=== PATIENT | male | born 1980 | race Caucasian/White ===

== ENCOUNTER 2020-08-18 10:23 | Inpatient (IN) | payer BC ==
[2020-08-18] MEDS ORDERED: Sodium Chloride 0.9% 1,000 ML IV ONE (10:47)
[2020-08-18] MEDS ORDERED: Albuterol 8 GM Inhaler INH ONE (10:58)
[2020-08-18 11:03] LABS: CHLORIDE,CL 100 mmol/L (98-107); SODIUM,NA 137 mmol/L (136-145)
[2020-08-18] MEDS ORDERED: Ondansetron 4 MG/2 ML SDV IVPUSH ONE (11:07)
[2020-08-18] MEDS ORDERED: REMDESIVIR 200 MG in Sodium Chloride 0.9% 250 ML IV ONE (11:10)
[2020-08-18] MEDS ORDERED: Dexamethasone 10 MG/ML SDV IVPUSH SCH (11:15)
[2020-08-18] MEDS ORDERED: Iopamidol 755 Mg/ML 100 ML Bottle IVPUSH ONE (11:37)
[2020-08-18] MEDS: Sodium Chloride 0.9% 10 ML Syringe FLUSH PRN ×2 (11:41→11:42)
--- NOTE | 2020-08-18 11:45 | EDM.PDOC ---
ED HPI GENERAL MEDICAL PROBLEM - General Chief Complaint: General Stated Complaint: shortness of breath Time Seen by Provider: 08/18/20 10:40 Source of Information: Reports: Patient History Limitations: Reports: No Limitations - History of Present Illness INITIAL COMMENTS - FREE TEXT/NARRATIVE: Patient ill will Covid since Friday, tested positive Friday. Now on day 6. Comes to ER after nearly passing out at home. Complains of SOB/aches/vomiting/diarrhea. Denies chronic medical conditions. generalized Pain Score (Numeric/FACES): 7 - Related Data Allergies Allergy/AdvReac Type Severity Reaction Status Date / Time No Known Allergies Allergy Verified 08/18/20 10:24 Home Meds: Home Meds Acetaminophen [Tylenol] 650 mg PO Q4H PRN 08/18/20 [History] Past Medical History HEENT History: Reports: Impaired Vision Musculoskeletal History: Reports: Fracture - Past Surgical History HEENT Surgical History: Reports: LASIK Social & Family History - Tobacco Use Tobacco Use Status *Q: Former Tobacco User Years of Tobacco use: 26 Packs/Tins Daily: 2 Used Tobacco, but Quit: Yes Month/Year Tobacco Last Used: 2018 - Caffeine Use Caffeine Use: Reports: Coffee - Alcohol Use Days Per Week of Alcohol Use: 4 Number of Drinks Per Day: 2 Total Drinks Per Week: 8 - Recreational Drug Use Recreational Drug Use: No ED ROS GENERAL - Review of Systems Review Of Systems: See Below Constitutional: Reports: Fever, Chills, Malaise, Weakness, Fatigue, Decreased Appetite Respiratory: Reports: Shortness of Breath, Cough. Denies: Hemoptysis Cardiovascular: Reports: Chest Pain, Dyspnea on Exertion, Lightheadedness. Denies: Palpitations GI/Abdominal: Reports: Diarrhea, Decreased Appetite, Nausea, Vomiting. Denies: Difficulty Swallowing, Distension, Hematemesis, Hematochezia : Reports: No Symptoms Musculoskeletal: Reports: Other (all over body aches) Skin: Reports: No Symptoms Neurological: Reports: Confusion, Headache, Difficulty Walking, Weakness. Denies: Trouble Speaking, Change in Speech Psychiatric: Reports: No Symptoms ED EXAM, GENERAL - Physical Exam Exam: See Below Exam Limited By: No Limitations General Appearance: Alert, Moderate Distress (coughing/mildly cyanotic during coughing spells) Eye Exam: Bilateral Eye: EOMI, PERRL Nose: No: Nasal Deformity, Nasal Swelling, Nasal Drainage Throat/Mouth: Normal Voice, No Airway Compromise Head: Atraumatic, Normocephalic Neck: Supple Respiratory/Chest: No Respiratory Distress, No Accessory Muscle Use, Decreased Breath Sounds (throughout). No: Crackles, Rales, Rhonchi Peripheral Pulses: 2+: Radial (L), Radial (R) GI/Abdominal: Soft, Non-Tender, No Distention, Abnormal Bowel Sounds (decreased) (Male) Exam: Deferred Rectal (Males) Exam: Deferred Back Exam: No: CVA Tenderness (L), CVA Tenderness (R), Muscle Spasm, Paraspinal Tenderness, Vertebral Tenderness Extremities: Slow Capillary Refill Neurological: Alert, Other (Moves all 4 limbs equally. Does not remember day/month when asked by nursing) Psychiatric: Anxious Skin Exam: Warm, Dry, Intact, Normal Color Course - Vital Signs Last Recorded V/S: Last Vital Signs Temp 37.8 C 08/18/20 10:26 Pulse 92 08/18/20 11:30 Resp 21 H 08/18/20 11:30 BP 90/74 08/18/20 11:30 Pulse Ox 99 08/18/20 11:30 - Orders/Labs/Meds Orders: Active Orders 24 hr Category Date Time Status Chest 1V Frontal [CR] Stat Exams 08/18/20 10:42 Taken PE Chest [Ang Chest] [CT] Stat Exams 08/18/20 11:31 Ordered CULTURE BLOOD [BC] Stat Lab 08/18/20 10:35 Received CULTURE BLOOD [BC] Stat Lab 08/18/20 10:40 Received UA W/MICROSCOPIC [URIN] Stat Lab 08/18/20 10:41 Ordered Enoxaparin [Lovenox] Med 08/18/20 12:15 Ordered 40 mg SUBCUT Q12H Sodium Chloride 0.9% [Saline Flush] Med 08/18/20 10:41 Active 10 ml FLUSH ASDIRECTED PRN dexAMETHasone [Decadron] Med 08/18/20 11:15 Active 6 mg IVPUSH DAILY Blood Culture x2 Reflex Set [OM.PC] Stat Oth 08/18/20 10:42 Ordered Saline Lock Insert [OM.PC] Stat Oth 08/18/20 10:41 Ordered Medication Orders Dexamethasone (Decadron) 6 mg IVPUSH DAILY JENNIFER Last Admin: 08/18/20 11:24 Dose: 6 mg Documented by: CANDY Enoxaparin Sodium (Lovenox) 40 mg SUBCUT Q12H JENNIFER Last Admin: 08/18/20 13:39 Dose: 40 mg Documented by: CANDY Sodium Chloride (Saline Flush) 10 ml FLUSH ASDIRECTED PRN PRN Reason: Keep Vein Open Last Admin: 08/18/20 11:42 Dose: 10 ml Documented by: Admin: 08/18/20 11:41 Dose: 10 ml Documented by: CANDY Labs: Laboratory Tests 08/18/20 08/18/20 08/18/20 Range/Units 10:35 10:35 10:35 WBC 6.8 (4.0-10.2) K/uL RBC 4.72 (4.33-5.41) M/uL Hgb 15.7 (13.1-16.8) g/dL Hct 44.4 (39.0-49.0) % MCV 94.1 (84.0-98.0) fL MCH 33.3 (28.2-33.3) pg MCHC 35.4 (31.7-36.0) g/dL RDW 12.5 (11.2-14.1) % Plt Count 178 (150-350) K/uL Neut % (Auto) 74.8 (45.0-80.0) % Lymph % (Auto) 15.5 (10.0-50.0) % [place] % (Auto) 9.6 (2.0-14.0) % Eos % (Auto) 0.0 (0.0-5.0) % Baso % (Auto) 0.1 (0.0-2.0) % Neut # (Auto) 5.11 (1.40-7.00) K/uL Lymph # (Auto) 1.06 (0.50-3.50) K/uL [place] # (Auto) 0.66 (0.00-1.00) K/uL Eos # (Auto) 0.00 (0.00-0.50) K/uL Baso # (Auto) 0.01 (0.00-0.20) K/uL PT 10.3 (9.5-12.0) SEC INR 1.0 D-Dimer, Quantitative 603 H (0-400) ng/mL Sodium (136-145) mmol/L Potassium (3.5-5.1) mmol/L Chloride (98-107) mmol/L Carbon Dioxide (21.0-32.0) mmol/L BUN (7-18) mg/dL Creatinine (0.51-1.17) mg/dL Est Cr Clr Drug Dosing mL/min Estimated GFR (MDRD) mL/min Glucose (74-106) mg/dL Lactic Acid (0.4-2.0) mmol/L Calcium (8.5-10.1) mg/dL Magnesium (1.8-2.4) mg/dL Total Bilirubin (0.2-1.0) mg/dL AST (15-37) U/L ALT (12-78) U/L Alkaline Phosphatase (46-116) IU/L Total Protein (6.4-8.2) g/dL Albumin (3.4-5.0) g/dL 08/18/20 08/18/20 Range/Units 10:35 10:35 WBC (4.0-10.2) K/uL RBC (4.33-5.41) M/uL Hgb (13.1-16.8) g/dL Hct (39.0-49.0) % MCV (84.0-98.0) fL MCH (28.2-33.3) pg MCHC (31.7-36.0) g/dL RDW (11.2-14.1) % Plt Count (150-350) K/uL Neut % (Auto) (45.0-80.0) % Lymph % (Auto) (10.0-50.0) % [place] % (Auto) (2.0-14.0) % Eos % (Auto) (0.0-5.0) % Baso % (Auto) (0.0-2.0) % Neut # (Auto) (1.40-7.00) K/uL Lymph # (Auto) (0.50-3.50) K/uL [place] # (Auto) (0.00-1.00) K/uL Eos # (Auto) (0.00-0.50) K/uL Baso # (Auto) (0.00-0.20) K/uL PT (9.5-12.0) SEC INR D-Dimer, Quantitative (0-400) ng/mL Sodium 137 (136-145) mmol/L Potassium 3.4 L (3.5-5.1) mmol/L Chloride 100 (98-107) mmol/L Carbon Dioxide 23.9 (21.0-32.0) mmol/L BUN 17 (7-18) mg/dL Creatinine 0.89 (0.51-1.17) mg/dL Est Cr Clr Drug Dosing 119.89 mL/min Estimated GFR (MDRD) > 60 mL/min Glucose 95 (74-106) mg/dL Lactic Acid 1.6 (0.4-2.0) mmol/L Calcium 8.1 L (8.5-10.1) mg/dL Magnesium 2.3 (1.8-2.4) mg/dL Total Bilirubin 0.9 (0.2-1.0) mg/dL AST 35 (15-37) U/L ALT 43 (12-78) U/L Alkaline Phosphatase 78 (46-116) IU/L Total Protein 7.7 (6.4-8.2) g/dL Albumin 3.6 (3.4-5.0) g/dL Meds: Medications Generic Name Dose Route Start Last Admin Trade Name Freq PRN Reason Stop Dose Admin Dexamethasone 6 mg 08/18/20 11:15 08/18/20 11:24 Decadron IVPUSH 6 mg DAILY JENNIFER Administration Enoxaparin Sodium 40 mg 08/18/20 12:15 08/18/20 13:39 Lovenox SUBCUT 40 mg Q12H JENNIFER Administration Sodium Chloride 10 ml 08/18/20 10:41 08/18/20 11:42 Saline Flush FLUSH 10 ml ASDIRECTED PRN Administration Keep Vein Open Discontinued Medications Generic Name Dose Route Start Last Admin Trade Name Freq PRN Reason Stop Dose Admin Albuterol Confirm 08/18/20 10:58 Ventolin Hfa Administered 08/18/20 10:59 Dose 8 gm INH .STK-MED ONE Sodium Chloride 1,000 mls @ 999 mls/hr 08/18/20 10:47 08/18/20 11:16 Normal Saline IV 08/18/20 11:47 999 mls/hr .BOLUS ONE Administration Remdesivir 200 mg/ Sodium 290 mls @ 290 mls/hr 08/18/20 11:10 08/18/20 11:35 Chloride IV 08/18/20 11:11 290 mls/hr ONETIME ONE Administration Iopamidol 100 ml 08/18/20 11:37 08/18/20 13:14 Isovue-370 (76%) IVPUSH 08/18/20 11:38 100 ml ONETIME ONE Administration Ondansetron HCl 4 mg 08/18/20 11:07 08/18/20 11:24 Zofran IVPUSH 08/18/20 11:08 4 mg ONETIME ONE Administration Potassium Chloride 20 meq 08/18/20 11:50 08/18/20 13:39 Klor-Con 10 PO 08/18/20 11:51 20 meq ONETIME ONE Administration - Radiology Interpretation Free Text/Narrative:: Patchy changes consistent with Covid pneumonia noted on chest xray. - Re-Assessments/Exams Free Text/Narrative Re-Assessment/Exam: 08/18/20 11:46 Patient improved once on oxygen. Still mild tachypnea at 22-23 bmp. Sats below 90 during coughing. IV fluid bolus ordered. Albuterol via MDI. Given his passing out at home and mild oxygen requirement will admit him to floor for further evaluation/care. Departure - Departure Time of Disposition: 11:47 Disposition: Admitted As Inpatient 64 Condition: Good Clinical Impression: COVID-19 - Discharge Information Referrals: PCP,Unknown [Ordering Only Provider] - Forms: ED Department Discharge Sepsis Event Note (ED) - Evaluation Sepsis Screening Result: Possible Severe Sepsis Risk - Focused Exam Vital Signs: Vital Signs Temp Pulse Resp BP Pulse Ox 08/18/20 11:30 92 21 H 90/74 99 08/18/20 11:15 98 28 H 119/80 99 08/18/20 11:00 102 H 21 H 113/89 98 08/18/20 10:42 107 H 24 H 135/82 98 08/18/20 10:27 103 H 22 H 124/92 H 93 L 08/18/20 10:26 37.8 C 101 H 23 H 133/98 H 94 L - Problem List & Annotations (1) COVID-19 SNOMED Code(s): 851761418 Code(s): U07.1 - COVID-19 Status: Acute Priority: High Onset Date: ~08/13/20 Annotation/Comment:: Remdesivir and Dexamethasone initiated. Albut jack MDI/O2 via NC. Pending CT angio chest to rule out PE. (2) Hypokalemia SNOMED Code(s): 80326388 Code(s): E87.6 - HYPOKALEMIA Status: Acute Priority: Medium Annotation/Comment:: Mild. Continue to observe in light of IV fluids and continued loose stools. (3) Dehydration SNOMED Code(s): 35907893 Code(s): E86.0 - DEHYDRATION Status: Acute Priority: Medium Annotation/Comment:: IV fluids ordered. (4) Elevated d-dimer SNOMED Code(s): 220913204 Code(s): R79.89 - OTHER SPECIFIED ABNORMAL FINDINGS OF BLOOD CHEMISTRY Status: Acute Priority: High Annotation/Comment:: PE angio chest negative for PE. Changes consistent with Covid pneumonia noted. Mildly enlarged mediastinal/hilar lymph nodes. Likely reactive. Recommend f/u chest CT 8-12 we eks to assess for interval change. - My Orders Last 24 Hours: My Active Orders 08/18/20 10:35 CULTURE BLOOD [BC] Stat 08/18/20 10:40 CULTURE BLOOD [BC] Stat 08/18/20 10:41 UA W/MICROSCOPIC [URIN] Stat Sodium Chloride 0.9% [Saline Flush] 10 ml FLUSH ASDIRECTED PRN Saline Lock Insert [OM.PC] Stat 08/18/20 10:42 Chest 1V Frontal [CR] Stat Blood Culture x2 Reflex Set [OM.PC] Stat 08/18/20 11:15 dexAMETHasone [Decadron] 6 mg IVPUSH DAILY 08/18/20 11:31 PE Chest [Ang Chest] [CT] Stat 08/18/20 12:15 Enoxaparin [Lovenox] 40 mg SUBCUT Q12H - Assessment/Plan Admission H&P: Please use this note as an admission H&P Last 24 Hours: My Active Orders 08/18/20 10:35 CULTURE BLOOD [BC] Stat 08/18/20 10:40 CULTURE BLOOD [BC] Stat 08/18/20 10:41 UA W/MICROSCOPIC [URIN] Stat Sodium Chloride 0.9% [Saline Flush] 10 ml FLUSH ASDIRECTED PRN Saline Lock Insert [OM.PC] Stat 08/18/20 10:42 Chest 1V Frontal [CR] Stat Blood Culture x2 Reflex Set [OM.PC] Stat 08/18/20 11:15 dexAMETHasone [Decadron] 6 mg IVPUSH DAILY 08/18/20 11:31 PE Chest [Ang Chest] [CT] Stat 08/18/20 12:15 Enoxaparin [Lovenox] 40 mg SUBCUT Q12H Assessment:: as above Plan: as above. Anticipate 3-4 day stay or longer depending on clinical course of patient's Covid 19 infection.
[2020-08-18] MEDS ORDERED: Potassium Chloride 10 MEQ Tab.ER PO ONE (11:50)
[2020-08-18] MEDS ORDERED: Enoxaparin 40 MG/0.4 ML Syringe SUBCUT SCH (12:15)
[2020-08-18] MEDS ORDERED: Albuterol 8 GM Inhaler INH SCH (15:45)
[2020-08-18] MEDS ORDERED: Ondansetron 4 MG/2 ML SDV IVPUSH PRN (16:00)
[2020-08-18] MEDS: Albuterol 8 GM Inhaler INH SCH ×3 (16:07→23:54)
[2020-08-18] MEDS ORDERED: Sodium Chloride 0.9% 1,000 ML IV SCH (16:15)
[2020-08-18] MEDS: Acetaminophen 325 MG Tab PO PRN (16:40)
[2020-08-18] MEDS: NS + KCl 20mEq/L 1,000 ML IV SCH (16:40)
[2020-08-18] MEDS: Enoxaparin 40 MG/0.4 ML Syringe SUBCUT SCH (23:51)
[2020-08-19] MEDS: NS + KCl 20mEq/L 1,000 ML IV SCH (02:35)
[2020-08-19] MEDS: Albuterol 8 GM Inhaler INH SCH ×5 (04:03→19:39)
[2020-08-19 08:48] LABS: CHLORIDE,CL 108 mmol/L (98-107); SODIUM,NA 142 mmol/L (136-145)
[2020-08-19] MEDS: Acetaminophen 325 MG Tab PO PRN (10:37)
[2020-08-19] MEDS: Dexamethasone 10 MG/ML SDV IVPUSH SCH (11:45)
[2020-08-19] MEDS: Enoxaparin 40 MG/0.4 ML Syringe SUBCUT SCH (11:45)
[2020-08-19] MEDS: Sodium Chloride 0.9% 10 ML Syringe FLUSH PRN (12:16)
[2020-08-19] MEDS: REMDESIVIR 100 MG in Sodium Chloride 0.9% 250 ML IV SCH (12:18)
--- NOTE | 2020-08-19 16:13 | PCM.PN ---
- General Info Date of Service: 08/19/20 Admission Dx/Problem (Free Text): Acute Covid-19 infection/hypoxemia Subjective Update: Feeling improved today. Still feels weak, hard to do incentive spirometry. Functional Status: Reports: Tolerating Diet, Ambulating, Urinating, Other (feels achy). Denies: New Symptoms Pain Score: 6 - Review of Systems General: Reports: Weakness, Fatigue, Malaise. Denies: Fever, Chills, Night Sweats HEENT: Denies: Headaches, Sinus Congestion, Sore Throat Pulmonary: Reports: Shortness of Breath (improved), Cough. Denies: Pleuritic Chest Pain, Hemoptysis, Wheezing Cardiovascular: Denies: Palpitations, Edema Gastrointestinal: Reports: Diarrhea (improved), Vomiting (none today). Denies: Abdominal Pain Genitourinary: Reports: No Symptoms Musculoskeletal: Reports: Other (generalized achiness) Skin: Reports: No Symptoms Neurological: Reports: Headache. Denies: Trouble Speaking, Change in Speech Psychiatric: Reports: No Symptoms - Patient Data Vitals - Most Recent: Last Vital Signs Temp 36.5 C 08/19/20 15:55 Pulse 54 L 08/19/20 15:55 Resp 16 08/19/20 15:55 BP 110/71 08/19/20 15:55 Pulse Ox 97 08/19/20 15:55 Weight - Most Recent: 104.326 kg I&O - Last 24 Hours: Intake & Output 08/19/20 08/19/20 08/19/20 06:59 14:59 22:59 Intake Total 600 Balance 600 Lab Results Last 24 Hours: Laboratory Results - last 24 hr 08/18/20 08/19/20 08/19/20 Range/Units 20:55 08:20 08:20 WBC 3.7 L (4.0-10.2) K/uL RBC 4.23 L (4.33-5.41) M/uL Hgb 13.8 D (13.1-16.8) g/dL Hct 41.0 (39.0-49.0) % MCV 96.9 (84.0-98.0) fL MCH 32.6 (28.2-33.3) pg MCHC 33.7 (31.7-36.0) g/dL RDW 12.5 (11.2-14.1) % Plt Count 196 (150-350) K/uL Neut % (Auto) 50.9 (45.0-80.0) % Lymph % (Auto) 36.9 (10.0-50.0) % [place] % (Auto) 11.9 (2.0-14.0) % Eos % (Auto) 0.0 (0.0-5.0) % Baso % (Auto) 0.3 (0.0-2.0) % Neut # (Auto) 1.89 (1.40-7.00) K/uL Lymph # (Auto) 1.37 (0.50-3.50) K/uL [place] # (Auto) 0.44 (0.00-1.00) K/uL Eos # (Auto) 0.00 (0.00-0.50) K/uL Baso # (Auto) 0.01 (0.00-0.20) K/uL Sodium 142 (136-145) mmol/L Potassium 3.8 (3.5-5.1) mmol/L Chloride 108 H (98-107) mmol/L Carbon Dioxide 25.6 (21.0-32.0) mmol/L BUN 14 (7-18) mg/dL Creatinine 0.68 (0.51-1.17) mg/dL Est Cr Clr Drug Dosing 156.91 mL/min Estimated GFR (MDRD) > 60 mL/min Glucose 106 (74-106) mg/dL Calcium 7.6 L (8.5-10.1) mg/dL Total Bilirubin 0.5 (0.2-1.0) mg/dL AST 24 (15-37) U/L ALT 39 (12-78) U/L Alkaline Phosphatase 67 (46-116) IU/L Total Protein 6.8 (6.4-8.2) g/dL Albumin 3.0 L (3.4-5.0) g/dL Specimen Type Urinblad Urine Color Yellow Urine Appearance Clear Urine pH 5.5 (5.0-9.0) Ur Specific [place] 1.020 (1.005-1.030) Urine Protein 30 H (NEGATIVE) mg/dL Urine Glucose (UA) Negative (NEGATIVE) mg/dL Urine Ketones 40 H (NEGATIVE) mg/dL Urine Occult Blood Negative (NEGATIVE) Urine Nitrite Negative (NEGATIVE) Urine Bilirubin Small H (NEGATIVE) Urine Urobilinogen 0.2 (0.2-1.0) E.U./dL Ur Leukocyte Esterase Negative (NEGATIVE) Urine RBC Not seen /HPF Urine WBC 0-5 /HPF Urine Bacteria Not seen (NONE TO FEW) /HPF Urine Mucus Rare H (NEGATIVE) /LPF [place] Results Last 24 Hours: Microbiology 08/18/20 10:40 Aerobic Blood Culture - Preliminary Blood - Venous - Lab Draw NO GROWTH AFTER 1 DAY Anaerobic Blood Culture - Preliminary NO GROWTH AFTER 1 DAY 08/18/20 10:35 Aerobic Blood Culture - Preliminary Blood - Venous NO GROWTH AFTER 1 DAY Anaerobic Blood Culture - Preliminary NO GROWTH AFTER 1 DAY Med Orders - Current: Current Medications Acetaminophen (Tylenol) 650 mg PO Q4H PRN PRN Reason: Pain Last Admin: 08/19/20 10:37 Dose: 650 mg Documented by: Albuterol (Ventolin Hfa) 1 gm INH Q4H [facility] Last Admin: 08/19/20 15:54 Dose: 1 puff Documented by: Dexamethasone (Decadron) 6 mg IVPUSH DAILY@1200 JENNIFER Last Admin: 08/19/20 11:45 Dose: 6 mg Documented by: Enoxaparin Sodium (Lovenox) 40 mg SUBCUT Q12H [facility] Last Admin: 08/19/20 11:45 Dose: 40 mg Documented by: Remdesivir 100 mg/ Sodium (Chloride) 270 mls @ 270 mls/hr IV Q24H [facility] Stop: 08/22/20 12:01 Last Admin: 08/19/20 12:18 Dose: 270 mls/hr Documented by: Ondansetron HCl (Zofran) 4 mg IVPUSH Q6H PRN PRN Reason: Nausea/Vomiting Sodium Chloride (Saline Flush) 10 ml FLUSH ASDIRECTED PRN PRN Reason: Keep Vein Open Last Admin: 08/19/20 12:16 Dose: 10 ml Documented by: Discontinued Medications Albuterol (Ventolin Hfa) Confirm Administered Dose 8 gm INH .STK-MED ONE Stop: 08/18/20 10:59 Last Admin: 08/18/20 16:09 Dose: Not Given Documented by: Albuterol (Ventolin Hfa) 1 gm INH Q4H [facility] Last Admin: 08/18/20 10:58 Dose: 1 puff Documented by: Dexamethasone (Decadron) 6 mg IVPUSH DAILY [facility] Last Admin: 08/18/20 11:24 Dose: 6 mg Documented by: Enoxaparin Sodium (Lovenox) 40 mg SUBCUT Q12H [facility] Last Admin: 08/18/20 13:39 Dose: 40 mg Documented by: Sodium Chloride (Normal Saline) 1,000 mls @ 999 mls/hr IV .BOLUS ONE Stop: 08/18/20 11:47 Last Admin: 08/18/20 11:16 Dose: 999 mls/hr Documented by: Remdesivir 200 mg/ Sodium (Chloride) 290 mls @ 290 mls/hr IV ONETIME ONE Stop: 08/18/20 11:11 Last Admin: 08/18/20 11:35 Dose: 290 mls/hr Documented by: Potassium Chloride/Sodium Chloride (Normal Saline With 20 Meq Kcl) 1,000 mls @ 100 mls/hr IV ASDIRECTED [facility] Last Admin: 08/19/20 02:35 Dose: 100 mls/hr Documented by: Sodium Chloride (Normal Saline) 1,000 mls @ 250 mls/hr IV ASDIRECTED [facility] Last Admin: 08/18/20 16:10 Dose: 250 mls/hr Documented by: Iopamidol (Isovue-370 (76%)) 100 ml IVPUSH ONETIME ONE Stop: 08/18/20 11:38 Last Admin: 08/18/20 13:14 Dose: 100 ml Documented by: Ondansetron HCl (Zofran) 4 mg IVPUSH ONETIME ONE Stop: 08/18/20 11:08 Last Admin: 08/18/20 11:24 Dose: 4 mg Documented by: Potassium Chloride (Klor-Con 10) 20 meq PO ONETIME ONE Stop: 08/18/20 11:51 Last Admin: 08/18/20 13:39 Dose: 20 meq Documented by: - Exam General: Alert, Oriented, Cooperative, No Acute Distress HEENT: Pupils Equal, Pupils Reactive, EOMI, Mucous Membr. Moist/[place] Neck: Supple Lungs: Clear to Auscultation, Normal Respiratory Effort Cardiovascular: Regular Rate, Regular Rhythm GI/Abdominal Exam: Normal Bowel Sounds, Soft, Non-Tender, No Distention (Male) Exam: Deferred Back Exam: No: CVA Tenderness (L), CVA Tenderness (R), Muscle Spasm Extremities: Normal Inspection, Normal Capillary Refill Skin: Warm, Dry Neurological: No New Focal Deficit Psy/Mental Status: Alert, Normal Affect, Normal Mood Sepsis Event Note - Evaluation Sepsis Screening Result: No Definite Risk - Focused Exam Vital Signs: Vital Signs Temp Pulse Resp BP Pulse Ox Pulse Ox 08/19/20 15:55 36.5 C 54 L 16 110/71 97 08/19/20 10:39 36.6 C 55 L 20 98/69 95 08/19/20 08:29 94 L 94 L 08/19/20 07:51 36.6 C 60 18 105/73 96 - Problem List & Annotations (1) COVID-19 SNOMED Code(s): 814320314 Code(s): U07.1 - COVID-19 Status: Acute Priority: High Current Visit: No Onset Date: ~08/13/20 Annotation/Comment:: Remdesivir and Dexamethasone initiated. Albuterol MDI/O2 via NC. CT angio chest for r/o PE negative day of admission. (2) Hypokalemia SNOMED Code(s): 30336808 Code(s): E87.6 - HYPOKALEMIA Status: Acute Priority: Medium Current Visit: No Annotation/Comment:: Level normalized today (3) Dehydration SNOMED Code(s): 98480998 Code(s): E86.0 - DEHYDRATION Status: Acute Priority: Medium Current Visit: No Annotation/Comment:: IV fluids ordered. (4) Elevated d-dimer SNOMED Code(s): 086533979 Code(s): R79.89 - OTHER SPECIFIED ABNORMAL FINDINGS OF BLOOD CHEMISTRY Status: Acute Priority: High Current Visit: No Annotation/Comment:: PE angio chest negative for PE. Changes consistent with Covid pneumonia noted. Mildly enlarged mediastinal/hilar lymph nodes. Likely reactive. Recommend f/u chest CT 8-12 weeks to assess for interval change. - Problem List Review Problem List Initiated/Reviewed/Updated: Yes - My Orders Last 24 Hours: My Active Orders 08/18/20 15:31 Patient Status [ADT] Routine May Shower [RC] ASDIRECTED Oxygen Therapy [RC] 2300 Up With Assistance [RC] ASDIRECTED VTE/DVT Education [RC] DAILY Vital Signs [RC] Q4HR Resuscitation Status Routine 08/18/20 15:36 Intake and Output [RC] Pulse Oximetry [RC] PRN Antiembolic Hose [OM.PC] Per Unit Routine 08/18/20 15:37 Antiembolic Devices [RC] 08/18/20 15:38 RT Post Treatment Assessment [RC] Click to Edit RT Pre-Treatment Assessment [RC] Click to Edit 08/18/20 16:00 Acetaminophen [TylenoL] 650 mg PO Q4H PRN Albuterol [Ventolin HFA] 1 gm INH Q4H Ondansetron [Zofran] 4 mg IVPUSH Q6H PRN 08/18/20 Dinner Regular Diet [DIET] 08/18/20 19:55 Isolation [COMM] Routine 08/19/20 00:00 Enoxaparin [Lovenox] 40 mg SUBCUT Q12H 08/19/20 12:00 Remdesivir (Eua) [Remdesivir (EUA)] 100 mg Sodium Chloride 0.9% [Normal Saline] 250 ml IV Q24H dexAMETHasone [Decadron] 6 mg IVPUSH DAILY@1200 08/20/20 05:11 Chest 1V Frontal [CR] AM CBC WITH AUTO DIFF [HEME] AM COMPREHENSIVE METABOLIC PN,CMP [CHEM] AM 08/21/20 05:11 CBC WITH AUTO DIFF [HEME] AM COMPREHENSIVE METABOLIC PN,CMP [CHEM] AM - Assessment Assessment:: as above. Has been off NC O2 while sitting in chair this afternoon and O2 sats maintaining in lower 90s - Plan Plan:: Continue Dexamethasone and Remdesivir. Patient still feels quite weak/fatigued. Given severity of symptoms yesterday/hypoxemia anticipate patient requiring an additional two days of hospitalization for continued antiviral treatment and monitoring of respiratory status/PRN O2 as needed.
[2020-08-20] MEDS: Albuterol 8 GM Inhaler INH SCH ×6 (00:29→21:48)
[2020-08-20] MEDS: Enoxaparin 40 MG/0.4 ML Syringe SUBCUT SCH (07:56)
[2020-08-20] MEDS: Sodium Chloride 0.9% 10 ML Syringe FLUSH PRN ×2 (07:56→13:14)
[2020-08-20 08:41] LABS: CHLORIDE,CL 108 mmol/L (98-107); SODIUM,NA 141 mmol/L (136-145)
[2020-08-20] MEDS: Dexamethasone 10 MG/ML SDV IVPUSH SCH (13:14)
[2020-08-20] MEDS: REMDESIVIR 100 MG in Sodium Chloride 0.9% 250 ML IV SCH (13:15)
--- NOTE | 2020-08-20 14:41 | PCM.PN ---
- General Info Date of Service: 08/20/20 Admission Dx/Problem (Free Text): Acute Covid-19 infection/hypoxemia Subjective Update: Patient still feeling very weak. Intermittent severe cough. SOB has improved. Functional Status: Reports: Pain Controlled, Tolerating Diet, Ambulating, Urinating, Incentive Spirometry. Denies: New Symptoms - Review of Systems General: Reports: Weakness, Fatigue, Malaise. Denies: Fever, Chills, Night Sweats HEENT: Reports: Sinus Congestion, Rhinitis. Denies: Headaches, Visual Changes Pulmonary: Reports: Shortness of Breath, Cough. Denies: Pleuritic Chest Pain, Sputum, Hemoptysis, Wheezing Cardiovascular: Reports: Dyspnea on Exertion, Lightheadedness (improved). Denies: Edema Gastrointestinal: Denies: Abdominal Pain, Constipation, Diarrhea, Difficulty Swallowing, Nausea, Vomiting Genitourinary: Reports: No Symptoms Musculoskeletal: Reports: Other (body aches/improved since admission) Skin: Reports: No Symptoms Neurological: Reports: Weakness (generalized). Denies: Confusion, Headache, Numbness, Paresthesia, Change in Speech Psychiatric: Reports: No Symptoms - Patient Data Vitals - Most Recent: Last Vital Signs Temp 36.5 C 08/20/20 12:00 Pulse 58 L 08/20/20 12:00 Resp 18 08/20/20 12:00 BP 101/69 08/20/20 12:00 Pulse Ox 97 08/20/20 12:00 Weight - Most Recent: 104.326 kg I&O - Last 24 Hours: Intake & Output 08/19/20 08/20/20 08/20/20 22:59 06:59 14:59 Intake Total 2160 520 Balance 2160 520 Lab Results Last 24 Hours: Laboratory Results - last 24 hr 08/20/20 08/20/20 08/20/20 Range/Units 08:15 08:15 08:15 WBC 7.0 (4.0-10.2) K/uL RBC 3.88 L (4.33-5.41) M/uL Hgb 12.8 L (13.1-16.8) g/dL Hct 37.5 L (39.0-49.0) % MCV 96.6 (84.0-98.0) fL MCH 33.0 (28.2-33.3) pg MCHC 34.1 (31.7-36.0) g/dL RDW 12.7 (11.2-14.1) % Plt Count 190 (150-350) K/uL Neut % (Auto) 68.5 (45.0-80.0) % Lymph % (Auto) 24.2 (10.0-50.0) % [place] % (Auto) 7.3 (2.0-14.0) % Eos % (Auto) 0.0 (0.0-5.0) % Baso % (Auto) 0.0 (0.0-2.0) % Neut # (Auto) 4.76 (1.40-7.00) K/uL Lymph # (Auto) 1.68 (0.50-3.50) K/uL [place] # (Auto) 0.51 (0.00-1.00) K/uL Eos # (Auto) 0.00 (0.00-0.50) K/uL Baso # (Auto) 0.00 (0.00-0.20) K/uL D-Dimer, Quantitative 254 (0-400) ng/mL Sodium 141 (136-145) mmol/L Potassium 3.5 (3.5-5.1) mmol/L Chloride 108 H (98-107) mmol/L Carbon Dioxide 24.6 (21.0-32.0) mmol/L BUN 14 (7-18) mg/dL Creatinine 0.59 (0.51-1.17) mg/dL Est Cr Clr Drug Dosing 180.85 mL/min Estimated GFR (MDRD) > 60 mL/min Glucose 89 (74-106) mg/dL Calcium 7.6 L (8.5-10.1) mg/dL Total Bilirubin 0.4 (0.2-1.0) mg/dL AST 24 (15-37) U/L ALT 42 (12-78) U/L Alkaline Phosphatase 53 (46-116) IU/L Total Protein 6.0 L (6.4-8.2) g/dL Albumin 2.8 L (3.4-5.0) g/dL [place] Results Last 24 Hours: Microbiology 08/18/20 10:40 Aerobic Blood Culture - Preliminary Blood - Venous - Lab Draw NO GROWTH AFTER 2 DAYS Anaerobic Blood Culture - Preliminary NO GROWTH AFTER 2 DAYS 08/18/20 10:35 Aerobic Blood Culture - Preliminary Blood - Venous NO GROWTH AFTER 2 DAYS Anaerobic Blood Culture - Preliminary NO GROWTH AFTER 2 DAYS Med Orders - Current: Current Medications Acetaminophen (Tylenol) 650 mg PO Q4H PRN PRN Reason: Pain Last Admin: 08/19/20 10:37 Dose: 650 mg Documented by: Albuterol (Ventolin Hfa) 1 gm INH Q4H [facility] Last Admin: 08/20/20 13:16 Dose: 1 puff Documented by: Dexamethasone (Decadron) 6 mg IVPUSH DAILY@1200 JENNIFER Last Admin: 08/20/20 13:14 Dose: 6 mg Documented by: Enoxaparin Sodium (Lovenox) 40 mg SUBCUT DAILY [facility] Last Admin: 08/20/20 07:56 Dose: 40 mg Documented by: Remdesivir 100 mg/ Sodium (Chloride) 270 mls @ 270 mls/hr IV Q24H [facility] Stop: 08/22/20 12:01 Last Admin: 08/20/20 13:15 Dose: 270 mls/hr Documented by: Ondansetron HCl (Zofran) 4 mg IVPUSH Q6H PRN PRN Reason: Nausea/Vomiting Sodium Chloride (Saline Flush) 10 ml FLUSH ASDIRECTED PRN PRN Reason: Keep Vein Open Last Admin: 08/20/20 13:14 Dose: 10 ml Documented by: Discontinued Medications Albuterol (Ventolin Hfa) Confirm Administered Dose 8 gm INH .STK-MED ONE Stop: 08/18/20 10:59 Last Admin: 08/18/20 16:09 Dose: Not Given Documented by: Albuterol (Ventolin Hfa) 1 gm INH Q4H [facility] Last Admin: 08/18/20 10:58 Dose: 1 puff Documented by: Dexamethasone (Decadron) 6 mg IVPUSH DAILY [facility] Last Admin: 08/18/20 11:24 Dose: 6 mg Documented by: Enoxaparin Sodium (Lovenox) 40 mg SUBCUT Q12H [facility] Last Admin: 08/18/20 13:39 Dose: 40 mg Documented by: Enoxaparin Sodium (Lovenox) 40 mg SUBCUT Q12H [facility] Last Admin: 08/19/20 11:45 Dose: 40 mg Documented by: Sodium Chloride (Normal Saline) 1,000 mls @ 999 mls/hr IV .BOLUS ONE Stop: 08/18/20 11:47 Last Admin: 08/18/20 11:16 Dose: 999 mls/hr Documented by: Remdesivir 200 mg/ Sodium (Chloride) 290 mls @ 290 mls/hr IV ONETIME ONE Stop: 08/18/20 11:11 Last Admin: 08/18/20 11:35 Dose: 290 mls/hr Documented by: Potassium Chloride/Sodium Chloride (Normal Saline With 20 Meq Kcl) 1,000 mls @ 100 mls/hr IV ASDIRECTED [facility] Last Admin: 08/19/20 02:35 Dose: 100 mls/hr Documented by: Sodium Chloride (Normal Saline) 1,000 mls @ 250 mls/hr IV ASDIRECTED [facility] Last Admin: 08/18/20 16:10 Dose: 250 mls/hr Documented by: Iopamidol (Isovue-370 (76%)) 100 ml IVPUSH ONETIME ONE Stop: 08/18/20 11:38 Last Admin: 08/18/20 13:14 Dose: 100 ml Documented by: Ondansetron HCl (Zofran) 4 mg IVPUSH ONETIME ONE Stop: 08/18/20 11:08 Last Admin: 08/18/20 11:24 Dose: 4 mg Documented by: Potassium Chloride (Klor-Con 10) 20 meq PO ONETIME ONE Stop: 08/18/20 11:51 Last Admin: 08/18/20 13:39 Dose: 20 meq Documented by: - Exam Quality Assessment: DVT Prophylaxis General: Alert, Oriented, Cooperative, No Acute Distress HEENT: Pupils Equal, Pupils Reactive, EOMI, Mucous Membr. Moist/[place] Neck: Supple Lungs: Clear to Auscultation, Normal Respiratory Effort Cardiovascular: Regular Rate, Regular Rhythm GI/Abdominal Exam: Normal Bowel Sounds, Soft, Non-Tender, No Distention (Male) Exam: Deferred Back Exam: No: CVA Tenderness (L), CVA Tenderness (R), Muscle Spasm Extremities: Normal Inspection, No Pedal Edema, Normal Capillary Refill Skin: Warm, Dry Neurological: No New Focal Deficit Psy/Mental Status: Alert, Normal Affect, Normal Mood Sepsis Event Note - Evaluation Sepsis Screening Result: No Definite Risk - Focused Exam Vital Signs: Vital Signs Temp Pulse Resp BP Pulse Ox 08/20/20 12:00 36.5 C 58 L 18 101/69 97 08/20/20 07:57 36.9 C 56 L 16 111/74 97 08/20/20 04:00 97 - Problem List & Annotations (1) COVID-19 SNOMED Code(s): 148986847 Code(s): U07.1 - COVID-19 Status: Acute Priority: High Current Visit: No Onset Date: ~08/13/20 Annotation/Comment:: Remdesivir and Dexamethasone initiated. Albuterol MDI/O2 via NC. CT angio chest for r/o PE negative day of admission. Still with a lot of weakness but showing improvement. Improving with incentive spirometry. Still with cough but overall SOB improving. No current O2 requirement. (2) Hypokalemia SNOMED Code(s): 96725026 Code(s): E87.6 - HYPOKALEMIA Status: Acute Priority: Medium Current Visit: No Annotation/Comment:: Level normalized today (3) Dehydration SNOMED Code(s): 53283639 Code(s): E86.0 - DEHYDRATION Status: Acute Priority: Medium Current Visit: No Annotation/Comment:: IV fluids ordered. (4) Elevated d-dimer SNOMED Code(s): 849749870 Code(s): R79.89 - OTHER SPECIFIED ABNORMAL FINDINGS OF BLOOD CHEMISTRY Status: Acute Priority: High Current Visit: No Annotation/Comment:: PE angio chest negative for PE. Changes consistent with Covid pneumonia noted. Mildly enlarged mediastinal/hilar lymph nodes. Likely reactive. Recommend f/u chest CT 8-12 weeks to assess for interval change. - Problem List Review Problem List Initiated/Reviewed/Updated: Yes - My Orders Last 24 Hours: My Active Orders 08/20/20 05:11 Chest 1V Frontal [CR] AM 08/20/20 08:00 Enoxaparin [Lovenox] 40 mg SUBCUT DAILY 08/21/20 05:11 CBC WITH AUTO DIFF [HEME] AM COMPREHENSIVE METABOLIC PN,CMP [CHEM] AM - Assessment Assessment:: as above. - Plan Plan:: Continue Dexamethasone and Remdesivir. Patient still feels quite weak/fatigued. Anticipate discharge home tomorrow if patient remains improved.
--- NOTE | 2020-08-20 14:47 | PCM.DCSUM1 ---
Discharge Summary - Hospital Course Brief History: admitted for treatment of dehydration, weakness, confusion, and hypoxemia associated with acute Covid infection. - Discharge Data Discharge Date: 08/21/20 Discharge Disposition: Home, Self-Care 01 Condition: Good - Referral to Home Health Primary Care Physician: PCP Unknown - Discharge Diagnosis/Problem(s) (1) COVID-19 SNOMED Code(s): 015277850 ICD Code: U07.1 - COVID-19 Status: Acute Priority: High Current Visit: No Onset Date: ~08/13/20 Problem Details: Remdesivir and Dexamethasone initiated. Albuterol MDI/O2 via NC. CT angio chest for r/o PE negative day of admission. Still with a lot of weakness but showing improvement. Improving with incentive spirometry. Still with cough but overall SOB improving. No current O2 requirement. (2) Hypokalemia SNOMED Code(s): 65059161 ICD Code: E87.6 - HYPOKALEMIA Status: Acute Priority: Medium Current Visit: No Problem Details: Level normalized today (3) Dehydration SNOMED Code(s): 63601366 ICD Code: E86.0 - DEHYDRATION Status: Acute Priority: Medium Current Visit: No Problem Details: IV fluids ordered. (4) Elevated d-dimer SNOMED Code(s): 250872656 ICD Code: R79.89 - OTHER SPECIFIED ABNORMAL FINDINGS OF BLOOD CHEMISTRY Status: Acute Priority: High Current Visit: No Problem Details: PE angio chest negative for PE. Changes consistent with Covid pneumonia noted. Mildly enlarged mediastinal/hilar lymph nodes. Likely reactive. Recommend f/u chest CT 8-12 weeks to assess for interval change. - Patient Summary/Data Hospital Course: Gradual improvement with weakness/hydration/SOB after treatment with fluids/Remdesivir and Dexamethasone. Feeling much improved on day of discharge/better energy over last 24 hours. Vital signs remained stable. Mild increased AST/ALT noted on day of discharge which may be related to medications received or to Covid itself. Precautions reviewed. Patient recommended to take one baby ASA daily for 30-60 days. Follow up at end of week with clinic. Follow up otherwise as needed PRN worsening/new concerns. - Patient Instructions Diet: Anti-Inflammatory Activity: As Tolerated Notify Provider of: Fever Other/Special Instructions: Recommend recheck with clinic at end of the week to see how you are doing. Follow up earlier as needed if you get worse again/new shortness of breath - Discharge Plan *PRESCRIPTION DRUG MONITORING PROGRAM REVIEWED*: Not Applicable *COPY OF PRESCRIPTION DRUG MONITORING REPORT IN PATIENT ESTEFANI: Not Applicable Prescriptions/Med Rec: Aspirin 81 mg PO DAILY #60 tab.chew Albuterol/Ipratropium [Combivent Respimat] 4 gm IH Q6HR #1 aer.[email or web address] Home Medications: Home Meds Acetaminophen [Tylenol] 650 mg PO Q4H PRN 08/18/20 [History] Albuterol [Ventolin HFA] 1 gm INH Q4H PRN #1 inhaler 08/20/20 [Rx] Albuterol/Ipratropium [Combivent Respimat] 4 gm IH Q6HR #1 aer.w.adap 08/20/20 [Rx] Aspirin 81 mg PO DAILY #60 tab.chew 08/20/20 [Rx] Patient Handouts: COVID-19 Frequently Asked Questions, COVID-19, Remdesivir, Dexamethasone injection, Coronavirus Information 12/27/19, Prevent the Spread of COVID-19 if You Are Sick - [facility] Forms: ED Department Discharge Referrals: PCP,Unknown [Primary Care Provider] - - Discharge Summary/Plan Comment DC Time >30 min.: No - Patient Data Vitals - Most Recent: Last Vital Signs Temp 36.5 C 08/20/20 12:00 Pulse 58 L 08/20/20 12:00 Resp 18 08/20/20 12:00 BP 101/69 08/20/20 12:00 Pulse Ox 97 08/20/20 12:00 Weight - Most Recent: 104.326 kg I&O - Last 24 hours: Intake & Output 08/19/20 08/20/20 08/20/20 22:59 06:59 14:59 Intake Total 2160 520 Balance 2160 520 Lab Results - Last 24 hrs: Laboratory Results - last 24 hr 08/20/20 08/20/20 08/20/20 Range/Units 08:15 08:15 08:15 WBC 7.0 (4.0-10.2) K/uL RBC 3.88 L (4.33-5.41) M/uL Hgb 12.8 L (13.1-16.8) g/dL Hct 37.5 L (39.0-49.0) % MCV 96.6 (84.0-98.0) fL MCH 33.0 (28.2-33.3) pg MCHC 34.1 (31.7-36.0) g/dL RDW 12.7 (11.2-14.1) % Plt Count 190 (150-350) K/uL Neut % (Auto) 68.5 (45.0-80.0) % Lymph % (Auto) 24.2 (10.0-50.0) % [place] % (Auto) 7.3 (2.0-14.0) % Eos % (Auto) 0.0 (0.0-5.0) % Baso % (Auto) 0.0 (0.0-2.0) % Neut # (Auto) 4.76 (1.40-7.00) K/uL Lymph # (Auto) 1.68 (0.50-3.50) K/uL [place] # (Auto) 0.51 (0.00-1.00) K/uL Eos # (Auto) 0.00 (0.00-0.50) K/uL Baso # (Auto) 0.00 (0.00-0.20) K/uL D-Dimer, Quantitative 254 (0-400) ng/mL Sodium 141 (136-145) mmol/L Potassium 3.5 (3.5-5.1) mmol/L Chloride 108 H (98-107) mmol/L Carbon Dioxide 24.6 (21.0-32.0) mmol/L BUN 14 (7-18) mg/dL Creatinine 0.59 (0.51-1.17) mg/dL Est Cr Clr Drug Dosing 180.85 mL/min Estimated GFR (MDRD) > 60 mL/min Glucose 89 (74-106) mg/dL Calcium 7.6 L (8.5-10.1) mg/dL Total Bilirubin 0.4 (0.2-1.0) mg/dL AST 24 (15-37) U/L ALT 42 (12-78) U/L Alkaline Phosphatase 53 (46-116) IU/L Total Protein 6.0 L (6.4-8.2) g/dL Albumin 2.8 L (3.4-5.0) g/dL [place] Results - Last 24 hrs: Microbiology 08/18/20 10:40 Aerobic Blood Culture - Preliminary Blood - Venous - Lab Draw NO GROWTH AFTER 2 DAYS Anaerobic Blood Culture - Preliminary NO GROWTH AFTER 2 DAYS 08/18/20 10:35 Aerobic Blood Culture - Preliminary Blood - Venous NO GROWTH AFTER 2 DAYS Anaerobic Blood Culture - Preliminary NO GROWTH AFTER 2 DAYS Med Orders - Current: Current Medications Acetaminophen (Tylenol) 650 mg PO Q4H PRN PRN Reason: Pain Last Admin: 08/19/20 10:37 Dose: 650 mg Documented by: Albuterol (Ventolin Hfa) 1 gm INH Q4H [facility] Last Admin: 08/20/20 13:16 Dose: 1 puff Documented by: Dexamethasone (Decadron) 6 mg IVPUSH DAILY@1200 JENNIFER Last Admin: 08/20/20 13:14 Dose: 6 mg Documented by: Enoxaparin Sodium (Lovenox) 40 mg SUBCUT DAILY [facility] Last Admin: 08/20/20 07:56 Dose: 40 mg Documented by: Remdesivir 100 mg/ Sodium (Chloride) 270 mls @ 270 mls/hr IV Q24H [facility] Stop: 08/22/20 12:01 Last Admin: 08/20/20 13:15 Dose: 270 mls/hr Documented by: Ondansetron HCl (Zofran) 4 mg IVPUSH Q6H PRN PRN Reason: Nausea/Vomiting Sodium Chloride (Saline Flush) 10 ml FLUSH ASDIRECTED PRN PRN Reason: Keep Vein Open Last Admin: 08/20/20 13:14 Dose: 10 ml Documented by: Discontinued Medications Albuterol (Ventolin Hfa) Confirm Administered Dose 8 gm INH .STK-MED ONE Stop: 08/18/20 10:59 Last Admin: 08/18/20 16:09 Dose: Not Given Documented by: Albuterol (Ventolin Hfa) 1 gm INH Q4H [facility] Last Admin: 08/18/20 10:58 Dose: 1 puff Documented by: Dexamethasone (Decadron) 6 mg IVPUSH DAILY [facility] Last Admin: 08/18/20 11:24 Dose: 6 mg Documented by: Enoxaparin Sodium (Lovenox) 40 mg SUBCUT Q12H [facility] Last Admin: 08/18/20 13:39 Dose: 40 mg Documented by: Enoxaparin Sodium (Lovenox) 40 mg SUBCUT Q12H [facility] Last Admin: 08/19/20 11:45 Dose: 40 mg Documented by: Sodium Chloride (Normal Saline) 1,000 mls @ 999 mls/hr IV .BOLUS ONE Stop: 08/18/20 11:47 Last Admin: 08/18/20 11:16 Dose: 999 mls/hr Documented by: Remdesivir 200 mg/ Sodium (Chloride) 290 mls @ 290 mls/hr IV ONETIME ONE Stop: 08/18/20 11:11 Last Admin: 08/18/20 11:35 Dose: 290 mls/hr Documented by: Potassium Chloride/Sodium Chloride (Normal Saline With 20 Meq Kcl) 1,000 mls @ 100 mls/hr IV ASDIRECTED [facility] Last Admin: 08/19/20 02:35 Dose: 100 mls/hr Documented by: Sodium Chloride (Normal Saline) 1,000 mls @ 250 mls/hr IV ASDIRECTED [facility] Last Admin: 08/18/20 16:10 Dose: 250 mls/hr Documented by: Iopamidol (Isovue-370 (76%)) 100 ml IVPUSH ONETIME ONE Stop: 08/18/20 11:38 Last Admin: 08/18/20 13:14 Dose: 100 ml Documented by: Ondansetron HCl (Zofran) 4 mg IVPUSH ONETIME ONE Stop: 08/18/20 11:08 Last Admin: 08/18/20 11:24 Dose: 4 mg Documented by: Potassium Chloride (Klor-Con 10) 20 meq PO ONETIME ONE Stop: 08/18/20 11:51 Last Admin: 08/18/20 13:39 Dose: 20 meq Documented by:
[2020-08-21] MEDS: Albuterol 8 GM Inhaler INH SCH ×3 (02:14→09:08)
[2020-08-21 07:42] LABS: CHLORIDE,CL 106 mmol/L (98-107); SODIUM,NA 141 mmol/L (136-145)
[2020-08-21] MEDS: Enoxaparin 40 MG/0.4 ML Syringe SUBCUT SCH (09:09)
== END 2020-08-21 12:15 | disposition home or self-care (01) | DRG 137 ==
LOC: LL.ED 10:23 → LL.MS 13:26 → UNDOADMIN 13:26 → LL.MS 15:31
PROVIDERS: ADMIT Emergency Medicine; ATTEND Emergency Medicine
PROC: XW033E5 Introduction of Remdesivir Anti-infective into Peripheral Vein, Percutaneous Approach, New Technology Group 5 (ICD-10-PCS; principal; 2020-08-18)
PROC: 8E0ZXY6 Isolation (ICD-10-PCS; 2020-08-18)
DX: U07.1 COVID-19 (principal); E86.0 Dehydration; E87.6 Hypokalemia; R79.89 Other specified abnormal findings of blood chemistry; J12.9 Viral pneumonia, unspecified; H54.7 Unspecified visual loss; F10.10 Alcohol abuse, uncomplicated; N39.9 Disorder of urinary system, unspecified; Z79.01 Long term (current) use of anticoagulants; Z79.82 Long term (current) use of aspirin; Z87.891 Personal history of nicotine dependence; Z99.81 Dependence on supplemental oxygen
CPT/HCPCS: 36415; 71045; 71275; 80053; 81001; 83605; 83735; 85025; 85379; 85610; 87040; 94640; 96361; 96365; 96375; 99222; 99232; 99238; 99285-25; A9270-GY; J1100; J1650; J2405; J3480; J7030; J7050; Q9967